=== PATIENT | male | born 1940 | race Caucasian/White ===

== ENCOUNTER 2017-11-10 11:39 | Emergency (ER) | payer OTHER ==
[~2017-11-10] VITALS: Ht 167.6 cm; Wt 63.5 kg
[~2017-11-10 11:39] MED LIST: ASPI-605 PO; BENA10TA2 PO; SIMV20TA6 PO
--- NOTE | 2017-11-10 11:57 | NUR ---
PATIENT TO ED DT RIGHT FOOT PAIN AND SWELLING X 1 WEEK. PATIENT DENIES TRAUMA. RIGHT FOOT NOTED WITH SWELLING AND SLIGHT REDNESS, SKIN IS WARM TO TOUCH AND NON DIAPHORETIC, AFEBRILE. VSS
--- NOTE | 2017-11-10 11:58 | NUR ---
DR. PINEDA AT BEDSIDE
[2017-11-10 12:18] LABS: BASOPHILS # (AUTO) 0.1 /CMM (0.0-0.2); BASOPHILS % (AUTO) 0.9 % (0.0-2.0); EOSINOPHILS # (AUTO) 0.1 /CMM (0.0-0.7); EOSINOPHILS % (AUTO) 0.7 % (0.0-6.0); HEMATOCRIT 37 % (39-51); HEMOGLOBIN 12.4 g/dL (13.5-17.5); LYMPHOCYTES # (AUTO) 1.2 /CMM (0.8-4.8); LYMPHOCYTES % (AUTO) 14.5 % (20.0-44.0); MEAN CORPUSCULAR HEMOGLOBIN 33 PG (26.0-33.0); MEAN CORPUSCULAR HGB CONC 33 g/dl (31.0-36.0); MEAN CORPUSCULAR VOLUME 99 fL (80-96); MONOCYTES # (AUTO) 0.9 /CMM (0.1-1.30); NEUTROPHILS # (AUTO) 5.8 /CMM (1.8-8.9); NEUTROPHILS % (AUTO) 72.9 % (43.0-81.0); PLATELET COUNT (AUTO) 290 /CMM (150-450); RDW COEFFICIENT OF VARIATION 14.1 (11.5-15.0); RED BLOOD CELL COUNT(AUTO) 3.74 MIL/uL (4.5-6.0); WHITE BLOOD COUNT (AUTO) 8.1 K/uL (4.3-11.0)
[2017-11-10 12:28] LABS: CALCIUM, SERUM 9.2 mg/dL (8.5-10.1); CARBON DIOXIDE 31 mmol/L (21-32); CHLORIDE 102 mmol/L (98-107); CREATININE 0.7 mg/dL (0.6-1.3); GLUCOSE 111 mg/dL (74-106); POTASSIUM 4.2 mmol/L (3.5-5.1); SODIUM SERUM 138 mmol/L (136-145); UREA NITROGEN, BLOOD 17 mg/dL (7-18)
[2017-11-10] MEDS ORDERED: VANCOMYCIN 1 GM in IV D5W 250 ML IV ONE (12:30)
[2017-11-10] MEDS ORDERED: PIPERACILLIN /TAZOBACTAM 3.375 G in IV D5W 50 ML IV ONE (12:30)
[2017-11-10 12:31] LABS: INR 0.97 (0.87-1.13); PROTHROMBIN TIME 10.1 SECS (9.5-12.7)
[2017-11-10 12:34] LABS: ALANINE AMINOTRANSFERASE 23 U/L (12-78); ALKALINE PHOSPHATASE 61 U/L (46-116); ASPARTATE AMINOTRANSFERASE 21 U/L (15-37); BILIRUBIN,DIRECT 0.2 mg/dL (0.0-0.2); BILIRUBIN,TOTAL 1.3 mg/dL (0.2-1.0); TOTAL PROTEIN, SERUM 8.4 g/dL (6.4-8.2)
[2017-11-10 12:36] LABS: TROPONIN I < 0.017 ng/mL (0.00-0.056)
--- NOTE | 2017-11-10 12:50 | NUR ---
ADMITTING ASKED TO CALL INSURANCE FOR [place]
[2017-11-10 13:18] VITALS: BP 132/73
--- NOTE | 2017-11-10 13:46 | NUR ---
PATIENT'S FAMILY REQUESTED TRANSFER TO [facility]
--- NOTE | 2017-11-10 14:40 | NUR ---
Patient does not wish to proceed with medical care recommended by Dr. Garrett Patient given information related to possible complications, up to and including , which could occur as a result of leaving the hospital at this time. Patient verbalizes understanding of risks involved due to leaving against medical advice. Patient has signed AMA form.
== END 2017-11-10 15:27 | disposition left against medical advice (07) ==
LOC: ER 11:41
DX: L03.115 Cellulitis of right lower limb (principal); I10 Essential (primary) hypertension; Z79.82 Long term (current) use of aspirin
CPT/HCPCS: 36415; 71010; 73630; 80048; 80076; 83605; 84484; 85025; 85730; 87040 ×2; 93005; 96365; 96366; 99285; A4606; J2543; J3370; J7060 ×2; Z7610